=== PATIENT | male | born 1975 | race Caucasian/White ===

== ENCOUNTER → 2020-09-23 11:11 | Outpatient (CLI) | payer BC, SELFPAY ==
[2020-09-23 12:44] LABS: Coronavirus 19 IgG Antibody Negative (Negative); Coronavirus 19 IgM Antibody Negative (Negative)
== END ==
PROVIDERS: Visit Provider Internal Medicine Gastroenterology
DX: Z01.818 Encounter for other preprocedural examination (principal); Z12.11 Encounter for screening for malignant neoplasm of colon; R10.9 Unspecified abdominal pain
CPT/HCPCS: 36415; 86328

== ENCOUNTER 2020-09-25 07:28 | Day surgery (SDC) | payer BC, SELFPAY ==
[2020-09-15 09:31] VITALS: BMI 28.0
[2020-09-25 07:43] VITALS: BP 150/89; PULSE 67; RESP 18; TEMP 36.3; O2SAT 100
[2020-09-25 08:21] VITALS: O2SAT 97
--- NOTE | 2020-09-25 08:22 | HMH.PROC ---
[facility] Procedure Note Procedure Note:: Colonoscopy Procedure Report: Colonoscopy with cold snare polypectomy Endoscopist: Geoffrey Sultana II, MD Referring physician: Uday Jaime MD Date of Procedure: September 25, 2020 Equipment: Olympus 180 variable stiffness pediatric colonoscope Sedation: MAC sedation Indication: Mr. Foster is a 45-year-old gentleman who is here for diagnostic colonoscopy. He developed left lower quadrant abdominal pain in January 2020. He was getting symptoms about once a month. He has had some increased constipation, bloating and gassiness. He did not have any imaging studies. He reports having some fever and vomiting with one of the episodes. He did get antibiotics at least one time. He did note some rectal bleeding with straining in the past. He did report obstipation/incomplete defecation at times. The patient was placed on a low residue diet and fiber bowel regimen (MiraLAX plus Konsyl) and has significantly improved. He reports no family history of colon cancer. His father had esophageal cancer. The patient does take omeprazole for GERD. Procedure: Prior to the procedure, a history and physical exam was performed, and patient's medications and allergies were reviewed. The risks, benefits and alternatives of the sedation and procedure were discussed with the patient. All questions were answered and informed consent was obtained. The patient was brought to the procedure room. Patient identification and proposed procedure were verified by the physician and the nurse. The patient was placed in a left lateral decubitus position and the scope was passed under direct vision. Throughout the procedure, the patient's blood pressure, pulse, and oxygen saturations were monitored continuously. The colonoscopy was accomplished without difficulty. The patient tolerated the procedure well. Findings: On digital rectal examination there was normal rectal tone. There were no external hemorrhoids. The prostate was 2+, smooth, soft, symmetric without nodules. The colonoscope was introduced through the anal canal to the rectum and advanced to the cecum. The ileocecal valve and appendiceal orifice were identified. The scope was advanced a short distance into the ileum which appeared grossly normal. The scope was then withdrawn into the colon. The cecum, ascending and transverse colon and mucosa were grossly normal. There were scattered diverticuli throughout the colon but more extensively in the descending and sigmoid colon (LEFT colon). There was some mild haustral edema in the sigmoid colon suggestive of mild chronic sigmoid diverticulitis. There was an 8 mm sigmoid colon polyp and 3 rectosigmoid colon polyps (3, 5 and 8 mm). All 4 of these polyps were removed via cold snare polypectomy. The remaining rectum itself was normal. Upon retroflexion within the rectum there were grade 2 internal hemorrhoids. The preparation was excellent throughout with Ellsworth Preparation Score of 9. The cecal time was 12 minutes. Impression: 1. Colonic polyps x4 2. Pandiverticulosis with evidence of mild resolving sigmoid diverticulitis 3. Grade 2 internal hemorrhoids Plan: I will follow up the polyp histology and recommend repeat screening/surveillance colonoscopy in 3 to 5 years. I would encourage continuation of the dietary measures and fiber bowel regimen (combined MiraLAX plus Konsyl daily) on a long-term maintenance basis.
--- NOTE | 2020-09-25 08:30 | P.PN_ITS ---
[facility] Anesthesia Checklist - Patient Identification Patient Identification: Arm Band, Verbal (Name & ) - Structural Data Admitted From: Home Planned Operative Procedure/s: Colonoscopy Consent for Planned Operative Procedure(s) Verified: Yes Verified Documents: Surgical Consent, History and Physical - NPO Status Verified Time NPO: 00:00 - Chart Verification Results Verified: None - Additional verifications Anesthesia Reactions: No - Airway Assessment C-Spine Mobility Assessed: Yes TMJ Mobility Assessed: Yes Dentition: Poor Dentition (missing teeth) - Neurological Assessment Level of Consciousness: Awake, Alert, Appropriate, Follows Commands Hx Seizures: No Numbness or tingling in extremities: No - Anesthesia Plan Anesthesia Risk discussed: Yes Anesthesia Plan: Verified ASA Class: II Anesthesia Type: MAC [facility] History I have reviewed the patient's past medical history: Yes Medical History: Reports:: Gastroesophageal Reflux Disease(GERD) Denies:: Cancer, Diabetes Mellitus Type 1, Diabetes Mellitus Type 2, MRSA, Seizures *Have you ever received a pneumonia vaccine?: No *Have you received a flu vaccine this season?: Yes Anesthesia experience/problems:: None Other Surgeries: Yes: EGD Amputation: No Fractures: No - *Social History Last grade of school completed: Advanced degree Smoking Status: Current every day smoker Tobacco Type: cigarettes # Packs/Day (cigarettes): 1 Alcohol Intake: never Substance Use Type: denies use *Occupational Status:: employed *Travel in the last 8 weeks: None Family Hx:: Other (NA)
[2020-09-25 08:43] VITALS: BP 95/59; PULSE 64; RESP 16; TEMP 36.1; O2SAT 96
[2020-09-25 08:53] VITALS: BP 103/73; PULSE 55; RESP 16; O2SAT 97
[2020-09-25 09:03] VITALS: BP 116/74; PULSE 57; RESP 16; O2SAT 100
[2020-09-25 09:30] VITALS: BP 108/72; PULSE 56; RESP 16; O2SAT 99
== END 2020-09-25 09:30 | disposition home or self-care (01) ==
PROVIDERS: PCP Family Medicine; Visit Provider Internal Medicine Gastroenterology
PROC: 0DJD8ZZ Inspection of Lower Intestinal Tract, Via Natural or Artificial Opening Endoscopic (ICD-10-PCS; CPT 45378; principal; 2020-09-25 08:30)
DX: K63.5 Polyp of colon (principal); K57.30 Diverticulosis of large intestine without perforation or abscess without bleeding; K64.1 Second degree hemorrhoids; Z80.0 Family history of malignant neoplasm of digestive organs; K21.9 Gastro-esophageal reflux disease without esophagitis; Z72.0 Tobacco use; Z79.899 Other long term (current) drug therapy
CPT/HCPCS: 45385

== ENCOUNTER → 2022-10-09 16:05 | Outpatient (CLI) | payer BC, SELFPAY ==
[2022-10-09 18:06] LABS: Adenovirus,PCR Not Detected (NotDetected); Bordetella Pertussis Not Detected (NotDetected); Chlamydophila Pneumoniae, PCR Not Detected (NotDetected); Coronavirus 19, PCR Not Detected (NotDetected); Coronavirus 229E Not Detected (NotDetected); Coronavirus NL63 Not Detected (NotDetected); Coronavirus OC43 Not Detected (NotDetected); Coronovirus HKU1,PCR Not Detected (NotDetected); Human Metapneumovirus Not Detected (NotDetected); Influenza A, PCR Not Detected (NotDetected); Influenza AH1, 2009 Not Detected (NotDetected); Influenza AH1, PCR Not Detected (NotDetected); Influenza AH3,PCR Not Detected (NotDetected); Influenza B, PCR Not Detected (NotDetected); Mycoplasma Pneumoniae, PCR Not Detected (NotDetected); Parainfluenza 1, PCR Not Detected (NotDetected); Parainfluenza 2, PCR Not Detected (NotDetected); Parainfluenza 3, PCR Not Detected (NotDetected); Parainfluenza 4, PCR Not Detected (NotDetected); Respiratory Syncytial Virus Not Detected (NotDetected); Rhinovirus/Enterovirus Not Detected (NotDetected)
== END ==
PROVIDERS: PCP Nurse Practitioner; Visit Provider Nurse Practitioner
DX: J06.9 Acute upper respiratory infection, unspecified (principal)
CPT/HCPCS: 87581; 87632; 87798; C9803; U0003; U0005

== ENCOUNTER → 2022-12-03 23:00 | Outpatient (CLI) | payer BC, SELFPAY ==
[2022-12-03 19:56] LABS: Blood Urea Nitrogen 8 mg/dl (9-20); Calcium 8.7 mg/dl (8.4-10.2); Carbon Dioxide 25 mmol/L (22.0-30.0); Chloride 105 mmol/L (98-107); Estimated Glomerular Filt Rate 104 ml/min (>60); GFR (African American) 125 ML/MIN (>60); Glucose 71 mg/dl (74-100); Sodium 139 mmol/L (136-145)
[2022-12-03 20:40] LABS: Anion Gap 12.9 mEq/L (5-15); Potassium 3.9 mmoL/L (3.5-5.1)
== END ==
PROVIDERS: PCP Nurse Practitioner; Visit Provider Nurse Practitioner
DX: U07.1 COVID-19 (principal)
CPT/HCPCS: 80048; C9803; U0003; U0005

== ENCOUNTER 2024-07-06 09:27 | Day surgery (SDC) | payer BC, SELFPAY ==
[2024-07-02 13:06] VITALS: BMI 29.2
[2024-07-06] MEDS: LACTATED RINGERS 1000ML 1,000 ML 25 ML IV (09:39)
[2024-07-06 09:43] VITALS: BP 116/71; PULSE 62; RESP 18; TEMP 36.2; O2SAT 99
--- NOTE | 2024-07-06 10:22 | HMH.SCOPE ---
Procedure: Date: 07/06/24 Patient Date of :: 1975 Procedure Performed:: Colonoscopy with polypectomy Indications:: History of colon polyps Chronic constipation Note: Colonoscopy performed by Dr. Sultana in 2019 revealed diverticulosis, hemorrhoids, and 4 polyps. Performing Provider:: Ivan Anguiano MD Referring Provider:: . Sedation:: Monitored anesthesia care Procedure:: After informed consent was obtained the patient was taken to the endoscopy suite. Sedation ensued after the patient was transferred to the left lateral decubitus position. Pulse, blood pressure, and oxygen saturation were monitored throughout the procedure. Digital rectal exam revealed no significant abnormality. The colonoscope was placed in position. The entire colon was evaluated. The colonoscope was carefully removed and the patient was transferred to recovery in stable condition. Please see findings and specimens below for detail. Findings:: Bowel preparation fair to moderate Fairly significant lack of relaxation (particularly in sigmoid colon) Somewhat firm prostate Scattered diverticulosis Hemorrhoidal cushions 2 small non-bleeding AVMs in cecum Polyps (see specimens) Specimens:: Sessile/lobulated polyp 75 cm (cold snare) Sessile polyp at 20 cm (cold snare) Sessile polyp at 12 cm (cold snare) Recommendations:: Timing of repeat colonoscopy is pending pathology will likely be around 2-3 years secondary to size/nature/number of polyps, fair to moderate bowel preparation, and significant lack of relaxation (deferred to the gastroenterology service) The patient will be referred back to Dr. Sultana for reevaluation of chronic constipation and to discuss plans for next colonoscopy. Complications:: No immediate Estimated blood obtained (mL): 1 Colonoscopy Component Colonoscopy Component Was a colonoscopy performed during today's procedure?: Yes Recommended follow up colonoscopy of at least 10 years?: No If no, follow up colonoscopy recommended in ___ years?: (See above) Reason for not recommending >/= 10 yr follow-up interval?: (See above)
--- NOTE | 2024-07-06 10:27 | P.PNANES_ITS ---
[facility] Disclaimer: The information contained in this section may have been updated after the patient was seen, as this information can be updated by other users. Medical History GERD (gastroesophageal reflux disease) Diverticulitis Surgical History No history of previous surgery Family History Other No significant family history Social History Smoking Status: Current every day smoker tobacco type: cigarettes packs per day: 1 alcohol intake: never substance use type: denies use current occupational status: employed Travel in the last 8 weeks: None caffeine: Yes [facility] Anesthesia Checklist Patient Identification Patient Identification: Arm Band, Family and Verbal (Name & ) Structural Data Admitted From: Home Planned Operative Procedure/s: Colonoscopy Consent for Planned Operative Procedure(s) Verified: Yes Verified Documents: Surgical Consent and History and Physical NPO Status Verified Time NPO: 08:00 Chart Verification Results Verified: BMP Additional verifications Patient : No Anesthesia Reactions: No Previous Colonoscopy: Yes Cardiovascular Assessment Heart Sounds: S1 & S2 Pulse Rhythm: Irregular Airway Assessment Mallampati Score:: Class II C-Spine Mobility Assessed: Yes (FROM) TMJ Mobility Assessed: Yes Dentition: Poor Dentition (Top front Right Middle tooth broken/carried. Nothing loose per pt.) Neurological Assessment Level of Consciousness: Awake, Alert, Appropriate and Follows Commands Hx Seizures: No Numbness or tingling in extremities: No Anesthesia Plan Anesthesia Risk discussed: Yes Anesthesia Plan: Verified ASA Class: II Anesthesia Type: MAC
[2024-07-06 10:31] VITALS: O2SAT 99
[2024-07-06 11:09] VITALS: BP 102/64; PULSE 58; RESP 16; TEMP 36.5; O2SAT 96
[2024-07-06 11:19] VITALS: BP 104/64; PULSE 56; RESP 18; O2SAT 98
[2024-07-06 11:29] VITALS: BP 102/54; PULSE 63; RESP 16; O2SAT 99
[2024-07-06 11:32] VITALS: BP 113/69; PULSE 64; RESP 16; O2SAT 99
== END 2024-07-06 11:34 | disposition home or self-care (01) ==
PROVIDERS: PCP Family Medicine; Visit Provider Surgery
PROC: 0DJD8ZZ Inspection of Lower Intestinal Tract, Via Natural or Artificial Opening Endoscopic (ICD-10-PCS; CPT 45385; principal; 2024-07-06 10:30)
DX: Z86.010 Personal history of colon polyps (principal); K59.09 Other constipation; K57.30 Diverticulosis of large intestine without perforation or abscess without bleeding; K64.9 Unspecified hemorrhoids; K55.20 Angiodysplasia of colon without hemorrhage; D12.7 Benign neoplasm of rectosigmoid junction; D12.4 Benign neoplasm of descending colon; D12.5 Benign neoplasm of sigmoid colon
CPT/HCPCS: 45385; J2704; J7120

== ENCOUNTER 2025-03-09 12:15 | Outpatient (CLI) | payer BC, SELFPAY ==
[2025-03-09 18:47] LABS: Basophils # 0.1 K/mm3 (0-0.2); Basophils % 1.2 % (0.1-2.0); Eosinophils # 0.2 Kmm3 (0.0-0.4); Hemoglobin 15.3 g/dL (14.1-18.0); Immature Granulocytes # 0.01 10^3uL; Immature Granulocytes % 0.2 %; Lymphocytes # 1.9 K/mm3 (0.7-4.5); Lymphocytes % 31.4 % (10-50); Mean Corpuscular Hemoglobin 31.9 pg (27.0-31.2); Mean Corpuscular Volume 93.9 fl (80-94); Mean Platelet Volume 9.8 fl (7.4-10.4); Monocytes # 0.5 K/mm3 (0.1-1.0); Monocytes % 8.7 % (1.7-9.3); Neutrophils # 3.3 K/mm3 (1.8-7.8); Neutrophils % 54.5 % (37.0-80.0); Nucleated Red Blood Cells # 0 10^3/uL; Nucleated Red Blood Cells % 0 %; Platelet Count 225 K/mm3 (142-424); Red Blood Count 4.79 M/mm3 (4.60-6.20); Red Cell Distribution Width 12.2 % (11.5-17.5); Red Cell Distribution Width-SD 42.6 fL
[2025-03-09 20:26] LABS: Alanine Aminotransferase 18 U/L (12-78); Albumin Level 4.1 g/dl (3.5-5.0); Albumin/Globulin Ratio 1.9 (1.1-1.8); Alkaline Phosphatase 61 U/L (38-126); Anion Gap 5.4 mEq/L (5-15); Aspartate Amino Transferase 18 U/L (17-59); Bilirubin,Total 0.5 mg/dl (0.2-1.3); Blood Urea Nitrogen 10 mg/dl (9-20); Calcium 8.8 mg/dl (8.4-10.2); Carbon Dioxide 24 mmol/L (22.0-30.0); Chloride 112 mmol/L (98-107); Chol/HDL Ratio 5.1 (1-3.5); Cholesterol 189 mg/dl (140-200); Estimated Glomerular Filt Rate 102 ml/min (>60); GFR (African American) 124 ML/MIN (>60); Globulin 2.2 g/dL (1.3-3.2); Glucose 95 mg/dl (74-100); HDL Cholesterol 37 mg/dl (40-60); Potassium 4.4 mmoL/L (3.5-5.1); Sodium 137 mmol/L (136-145); Total Protein,Serum 6.3 g/dl (6.3-8.2); Triglycerides 157 mg/dl (30-150); VLDL Cholesterol 31 mg/dL (0-40)
[2025-03-09 20:37] LABS: Direct LDL Cholesterol 131.06 mg/dL (100-129)
[2025-03-09 20:59] LABS: Prostate Specific Ag Screen 0.5 ng/ml (0.0-4.0); Thyroid Stimulating Hormone 1.81 uIU/mL (0.465-4.68)
[2025-03-09 21:17] LABS: Vitamin B12 278 pg/mL (239-931)
[2025-03-09 22:31] LABS: Hemoglobin A1C 5.1 % (4.0-6.0)
== END 2025-03-09 23:59 | disposition home or self-care (01) ==
LOC: LAB.DROPOF 03-11 12:16
PROVIDERS: PCP Nurse Practitioner; Visit Provider Nurse Practitioner
DX: Z13.1 Encounter for screening for diabetes mellitus (principal); Z13.29 Encounter for screening for other suspected endocrine disorder; Z13.220 Encounter for screening for lipoid disorders; Z12.5 Encounter for screening for malignant neoplasm of prostate; Z13.21 Encounter for screening for nutritional disorder; K21.9 Gastro-esophageal reflux disease without esophagitis
CPT/HCPCS: 80053; 80061; 82607; 83036; 84443; 85025; G0103